=== PATIENT | male | born 1965 | race Caucasian/White ===

== ENCOUNTER 2019-07-12 06:16 | Day surgery (SDC) ==
[2019-06-23 17:14] LABS: URINE SOURCE CLEAN CATCH
[2019-06-23 17:17] LABS: EOS# 0.27 X1000 (0.0-0.7); EOS% 2.6 % (0.0-10.0); HEMATOCRIT 43.9 % (42.0-52.0); HEMOGLOBIN 14.4 g/dL (14.0-18.0); IMM GRAN# 0.04 X1000 (0.0-0.04); IMM GRAN% 0.4 % (0.0-0.5); LYMPH# 2.22 X1000 (1.2-3.4); LYMPH% 21.5 % (20.5-51.1); MCH 28.8 PG (27-31); MCHC 32.8 g/dL (33-37); MCV 87.8 FL (81-99); MONO# 0.73 X1000 (0.11-0.59); MONO% 7.1 % (1.7-9.3); NEUT# 6.98 X1000 (1.4-6.5); NEUT% 67.4 % (42.2-75.2); PLT 265 X1000 (130-400); RDW 14.9 % (11.5-14.5); WBC 10.34 X1000 (4.8-10.8)
[2019-06-23 17:18] LABS: BILIRUBIN URINE NEGATIVE (NEGATIVE); BLOOD URINE NEGATIVE (NEGATIVE); COLOR YELLOW; GLUCOSE URINE NEGATIVE (NEGATIVE); KETONE URINE NEGATIVE (NEGATIVE); LEUKOCYTES URINE NEGATIVE (NEGATIVE); NITRITE URINE NEGATIVE (NEGATIVE); PH URINE 5.5; PROTEIN URINE NEGATIVE (NEGATIVE); TURBIDITY URINE CLEAR (CLEAR); UROBILINOGEN URINE NORMAL (NORMAL)
[2019-06-23 17:19] LABS: UR EPITHELIAL CELLS <10 /HPF (<10); URINE BACTERIA NEGATIVE /HPF; URINE RBC <10 /HPF (<10); URINE WBC <10 /HPF (<10)
[2019-06-23 17:25] LABS: INR 0.9; PROTIME 12.2 Seconds (11.0-16.0)
[2019-06-23 17:26] LABS: PTT 29.9 Seconds (22.3-41.8)
[2019-06-23 17:36] LABS: HEMOGLOBIN A1C 6.3 % (4.8-6.0)
--- NOTE | 2019-06-23 17:46 | EKG Report ---
Test Performed on : 06/23/2019 5:05:31 PM Test Reason : PAT Blood Pressure : / mmHG Vent. Rate : 085 BPM Atrial Rate : 085 BPM P-R Int : 152 ms QRS Dur : 084 ms QT Int : 340 ms P-R-T Axes : 068 055 005 degrees QTc Int : 404 ms Normal sinus rhythm. T wave abnormality, consider inferior ischemia Abnormal ECG No previous ECGs available Confirmed by Kevin JACK, Silverio Craig ([id number]) on 06/24/2019 7:31:19 AM
[2019-06-23 17:55] LABS: AGAP 13; ALBUMIN 4.2 g/dL (3.5-5.0); BUN 14 mg/dL (8-22); CALCIUM 9.6 mg/dL (8.8-10.2); CHLORIDE 99 mmol/L (98-107); COSMO 270; CREATININE 1.1 mg/dL (0.7-1.2); ESTIMATED GFR > 60; GLUCOSE 121 mg/dL (70-104); POTASSIUM 3.7 mmol/L (3.5-5.1); SODIUM 134 mmol/L (136-145); TCO2 22 mmol/L (25-35)
[2019-07-12] MEDS ORDERED: PEPCID ONE (06:45)
[2019-07-12] MEDS ORDERED: COLACE ONE (06:45)
[2019-07-12] MEDS ORDERED: REGLAN ONE (06:45)
[2019-07-12] MEDS ORDERED: LR 1,000 ML ONE (06:46)
[2019-07-12] MEDS ORDERED: KEFZOL 1 GM/D5W 2 GM/100 ML IVPB ONE (06:46)
[2019-07-12] MEDS ORDERED: CELEBREX ONE (06:46)
[2019-07-12] MEDS ORDERED: LYRICA ONE (06:46)
[2019-07-12] MEDS ORDERED: DIPRIVAN 1% ONE ×3 (08:16→11:45)
[2019-07-12] MEDS ORDERED: DURAMORPH ONE (09:42)
[2019-07-12] MEDS ORDERED: TORADOL ONE (09:42)
[2019-07-12] MEDS ORDERED: VANCOMYCIN ONE (09:43)
[2019-07-12] MEDS ORDERED: CYKLOKAPRON 1,000 MG/NS 1,000 MG/100 ML IVPB ONE ×2 (09:43→11:58)
[2019-07-12] MEDS ORDERED: SODIUM CHLORIDE 0.9% ONE (09:43)
[2019-07-12] MEDS ORDERED: MARCAINE 0.25% PF ONE (09:43)
[2019-07-12] MEDS ORDERED: EXPAREL 1.3% ONE (09:44)
[2019-07-12] MEDS ORDERED: NEOSPORIN G.U. IRRIGANT ONE (09:44)
[2019-07-12] MEDS ORDERED: FENTANYL ONE (09:51)
[2019-07-12] MEDS ORDERED: VERSED ONE ×3 (09:51→11:50)
[2019-07-12] MEDS ORDERED: DECADRON ONE (10:50)
[2019-07-12] MEDS ORDERED: OFIRMEV 1000 MG/ISOTONIC SOLN 1,000 MG/100 ML BOTTLE ONE (10:50)
[2019-07-12] MEDS ORDERED: ZOFRAN ONE (11:01)
[2019-07-12 11:51] LABS: URINE SOURCE CATH
[2019-07-12 11:55] LABS: BILIRUBIN URINE NEGATIVE (NEGATIVE); BLOOD URINE NEGATIVE (NEGATIVE); COLOR YELLOW; GLUCOSE URINE NEGATIVE (NEGATIVE); KETONE URINE NEGATIVE (NEGATIVE); LEUKOCYTES URINE NEGATIVE (NEGATIVE); NITRITE URINE NEGATIVE (NEGATIVE); PH URINE 5.5; PROTEIN URINE NEGATIVE (NEGATIVE); SP GRAVITY URINE 1.027; TURBIDITY URINE CLEAR (CLEAR); UROBILINOGEN URINE NORMAL (NORMAL)
[2019-07-12 11:58] LABS: UR EPITHELIAL CELLS <10 /HPF (<10); URINE BACTERIA NEGATIVE /HPF; URINE RBC <10 /HPF (<10); URINE WBC <10 /HPF (<10)
[2019-07-12] MEDS ORDERED: NS 1,000 ML ONE (13:04)
[2019-07-12] MEDS ORDERED: OXY IR PO PRN (13:15)
[2019-07-12] MEDS ORDERED: MORPHINE IV PRN ×3 (13:15)
[2019-07-12] MEDS ORDERED: ZOFRAN ODT PO PRN (13:15)
[2019-07-12] MEDS ORDERED: ZOFRAN IV PRN (13:15)
[2019-07-12] MEDS ORDERED: MILK OF MAGNESIA PO PRN (13:15)
[2019-07-12] MEDS ORDERED: OXY IR ONE (13:19)
[2019-07-12] MEDS: DILAUDID ONE ×2 (13:20→13:27)
--- NOTE | 2019-07-12 13:59 | OPERATIVE NOTE ---
PROCEDURE DATE: 07/12/2019 PREOPERATIVE DIAGNOSIS: Left knee degenerative joint disease. POSTOPERATIVE DIAGNOSIS: Left knee degenerative joint disease. PROCEDURE PERFORMED: Left total knee arthroplasty using [facility] size 8 femoral component, a size 8 tibial base plate, a 14 mm articular insert and a 38 mm patellar component. ANESTHESIA: Spinal. SURGEON: Devan Carey MD. COLOR MIXER: ELLA Pinto who was present throughout the case whose assistance was necessary for successful completion of case. BLOOD LOSS: Minimal. TOURNIQUET TIME: Approximately an hour and 20 minutes. DESCRIPTION OF PROCEDURE: The patient was brought to the operative suite and placed in supine position. After successful administration of spinal anesthesia, a well-padded tourniquet was placed on left proximal thigh. Left lower extremity was prepped and draped in usual sterile fashion. Leg was exsanguinated. Tourniquet insufflated to 350 torr. A longitudinal incision was made beginning superior pole of the patella and extended distally to tibia tuberosity. Full- thickness skin flaps elevated medially and laterally. The medial arthrotomy was made. The medial capsule was elevated off the medial tibial plateau. ACL, PCL, medial meniscus, lateral meniscus were excised. A drill was entered into the center of distal femur. Intramedullary guide was placed. The distal cutting block was pinned in place and then the distal femoral cut was made. Marginal osteophytes removed with rongeur. Attention was then directed to tibia. A drill was entered into the tibia. Intramedullary guide was placed. The line was checked with a drop leo then tibial cutting block was pinned in place and the articular surface tibial plateau was removed oscillating saw marginal osteophytes removed with rongeur. Extension gaps were checked and found to be tight medially. A medial release was performed is balanced at 14 mm, flexion gap was then set to 23 mm to account for the posterior condyle of the femoral component. Once rotation was set it was sized to size 8 and size 8 cutting block was pinned in place and the anterior cuts, chamfer cuts and posterior condylar cuts were made with oscillating saw. Marginal osteophytes were removed with a rongeur, box cutting block was pinned in place, box cut was made box osteotome and oscillating saw, posterior condyle osteophytes removed the curved osteotome and rongeur. Attention was then directed to the tibia. The tibia sized to size 8, a size 8 guide was used for the fin punch using a drop leo for proper rotation and then the tibial component, femoral component and 14 mm articular insert were placed taken through range of motion found have excellent alignment, balance, good range of motion. Attention was then directed to patella, 9 mm of the articular surface of patella removed with oscillating saw, patella sized to size 38, a size 38 guide was used drill peg holes, lateral facet was chamfered 30 to 45 degrees, patella trial was placed taken through range of motion found have excellent patella tracking. All trials were then removed. Knee was copiously irrigated and dried being certain all bone debris was removed . The tibial component, femoral component and patellar component were cemented into place excess cement being removed with a Bloxom. Once the cement hardened excess cement was again removed osteotome knee was again copiously irrigated and dried being certain all bone and cement debris removed. The trial articular insert was removed, knee was copiously infiltrated with Exparel including the posterior capsule, anterior capsule, anterior muscular subcu tissue. The tourniquet was deflated. Hemostasis was obtained with electrocautery. The 2nd tranexamic acid was given the 1st preoperatively. Definitive articular insert was then locked into place. Knee was again taken through range of motion, again found to have excellent alignment, balancing, range of motion and patellar tracking. Hemostasis was again obtained with electrocautery. The knee was again copiously irrigated with normal saline containing irrigant and Vashe irrigation. Medial arthrotomy was closed #1 Vicryl and 0 V-Loc. The skin edge approximated with 2-0 Vicryl, skin was closed with Prineo and a sterile dressing was applied. The patient tolerated the procedure well without complication. At the end the procedure all counts correct x2. The patient was transferred to the recovery room stable condition. cc: Devan Carey MD
[2019-07-12] MEDS: ULTRAM PO SCH ×2 (14:51→21:16)
[2019-07-12] MEDS: NS 1,000 ML IV SCH (14:51)
[2019-07-12] MEDS: OXY IR PO PRN ×2 (14:56→21:17)
[2019-07-12] MEDS: KEFZOL 2 GM/D5W 2 GM/50 ML IVPB IV SCH (18:01)
[2019-07-12] MEDS: TYLENOL PO SCH ×2 (18:02→21:16)
[2019-07-12] MEDS ORDERED: LIPITOR PO SCH (21:00)
[2019-07-12] MEDS: PERIDEX MT SCH (21:16)
[2019-07-12] MEDS: LYRICA PO SCH (21:16)
[2019-07-12] MEDS: CELEBREX PO SCH (21:16)
[2019-07-12] MEDS: COLACE PO SCH (21:16)
[2019-07-13] MEDS: KEFZOL 2 GM/D5W 2 GM/50 ML IVPB IV SCH (01:59)
[2019-07-13] MEDS: ULTRAM PO SCH ×3 (02:24→12:57)
[2019-07-13] MEDS: TYLENOL PO SCH ×3 (05:51→12:57)
[2019-07-13] MEDS: NS 1,000 ML IV SCH (06:10)
[2019-07-13] MEDS ORDERED: PRILOSEC PO SCH (07:00)
[2019-07-13] MEDS ORDERED: SYNTHROID PO SCH (07:00)
[2019-07-13 07:42] VITALS: BP 108/65
[2019-07-13] MEDS ORDERED: GLUCOPHAGE PO SCH (08:00)
[2019-07-13 08:22] LABS: HEMATOCRIT 39.1 % (42.0-52.0); HEMOGLOBIN 12.7 g/dL (14.0-18.0)
[2019-07-13] MEDS: CELEBREX PO SCH (08:31)
[2019-07-13] MEDS: PERIDEX MT SCH (08:31)
[2019-07-13] MEDS: COLACE PO SCH (08:31)
[2019-07-13] MEDS: LYRICA PO SCH (08:31)
[2019-07-13] MEDS ORDERED: ASPIRIN PO SCH (09:00)
[2019-07-13] MEDS ORDERED: NORVASC PO SCH (09:00)
[2019-07-13] MEDS ORDERED: PRINZIDE 10/12.5MG PO SCH (09:00)
[2019-07-13] MEDS ORDERED: DECADRON IV ONE (09:00)
[2019-07-13 09:12] LABS: AGAP 13; BUN 11 mg/dL (8-22); CALCIUM 8.6 mg/dL (8.8-10.2); CHLORIDE 105 mmol/L (98-107); COSMO 282; CREATININE 0.8 mg/dL (0.7-1.2); ESTIMATED GFR > 60; GLUCOSE 123 mg/dL (70-104); POTASSIUM 4.5 mmol/L (3.5-5.1); SODIUM 141 mmol/L (136-145); TCO2 23 mmol/L (25-35)
--- NOTE | 2019-07-13 13:34 | DISCHARGE SUMMARY ---
ADMISSION DATE: 07/12/2019 DISCHARGE DATE: 07/11/2019 DISCHARGE DIAGNOSIS: Left knee degenerative joint disease status post left total knee arthroplasty. DISCHARGE MEDICATION: See discharge medication list. DISPOSITION: The patient discharged home with outpatient physical therapy. Instructed to return for any signs or symptoms of infection or deep venous thrombosis. Instructed return to see Dr. Carey next . HOSPITAL COURSE: On the day of admission, patient underwent a left total knee arthroplasty. His postoperative course was unremarkable. At discharge he is afebrile, tolerating a regular diet, ambulating well with physical therapy. His wound is clean, dry, intact without sign of infection. He is discharged home in stable condition with instructions to follow up as described above. cc: Devan Carey MD
== END 2019-07-13 14:04 | disposition home or self-care (01) ==
LOC: OR 06:16 → 4N 06:16 → OR 07-13 14:04
PROVIDERS: ATTEND Orthopaedic Surgery